=== PATIENT | female | born 1930 | race Caucasian/White ===

== ENCOUNTER 2017-01-19 09:56 | Outpatient (CLI) | payer MEDICARE, MEDICAID ==
[2017-01-19 11:11] LABS: Eosinophils 1 % (0-10); Hemoglobin 10.7 g/dL (12.0-16.0); Lymphocytes 30 % (21-51); MDiff Complete? YES; Mean Corpuscular HGB CONC 31.7 g/dL (32.0-36.0); Mean Corpuscular Hemoglobin 31.4 pg (27.0-31.0); Mean Corpuscular Volume 99.2 fl (81.0-99.0); Mean Platelet Volume 8.5 fL (7.4-10.4); Monocytes 6 % (0-10); Neutrophil 63 % (42-75); Platelet Count 159 thou/uL (130-400); RBC Distribution Width 12.4 % (11.5-14.5); White Blood Cell (WBC) Count 10.6 thou/uL (4.8-10.8)
== END 2017-01-19 09:57 | disposition home or self-care (01) ==
LOC: HPCALD 09:56
PROVIDERS: ATTEND Family Medicine
DX: R06.00 Dyspnea, unspecified (principal); E03.9 Hypothyroidism, unspecified
CPT/HCPCS: 36415; 82607; 82746; 83880; 84443; 85025

== ENCOUNTER 2017-03-09 16:49 | Outpatient (CLI) | payer MEDICARE, MEDICAID | END 2017-03-09 16:50 | disposition home or self-care (01) | LOC: HPCALD 16:49 | PROVIDERS: ATTEND Family Medicine | DX: E03.9 Hypothyroidism, unspecified (principal) | CPT/HCPCS: 36415; 84443 ==

== ENCOUNTER 2017-03-14 14:31 | Emergency (ER) | payer MEDICARE, MEDICAID ==
[2017-03-14 15:09] LABS: Hemoglobin 10.5 g/dL (12.0-16.0); Mean Corpuscular HGB CONC 30.8 g/dL (32.0-36.0); Mean Corpuscular Hemoglobin 30.6 pg (27.0-31.0); Mean Corpuscular Volume 99.2 fL (81.0-99.0); Red Blood Cell (RBC) Count 3.44 mill/uL (4.20-5.40); White Blood Cell (WBC) Count 7.8 thou/uL (4.8-10.8)
[2017-03-14 15:10] LABS: #Eosinphils 0.2 thou/uL (0.0-0.7); #Lymphocytes 1.9 thou/uL (1.20-3.40); #Monocytes 0.4 thou/uL (0.11-0.59); #Neutrophils 5.2 thou/uL (1.40-6.50); %Basophils 0.5 % (0.0-1.0); %Lymphocytes 24.4 % (21.0-51.0); %Monocytes 5.1 % (0.0-10.0); Mean Platelet Volume 10.3 fL (7.4-10.4); Platelet Count 186 thou/uL (130-400); RBC Distribution Width 12.1 % (11.5-14.5)
[2017-03-14 15:21] LABS: Carbon Dioxide 25 mmol/L (23-31); Chloride 107 mmol/L (98-107); Potassium 4.8 mmol/L (3.5-5.1); Sodium 143 mmol/L (136-145)
[2017-03-14 15:22] LABS: Albumin 3.7 g/dL (3.4-4.8); BUN (Urea Nitrogen) 14 mg/dL (9.8-20.1); Bilirubin, Total 0.3 mg/dL (0.2-1.2); Calc. Creatinine Clearance 0 mL/min (70-130); Calcium 8.7 mg/dL (7.8-10.44); Estimated GFR-MDRD 46; Globulin 3.1 g/dL (2.4-3.5); Glucose 115 mg/dL (83-110); Protein, Total 6.8 g/dL (5.8-8.1)
[2017-03-14 15:23] LABS: ALT (SGPT) 8 U/L (8-55); AST (SGOT) 17 U/L (5-34); Alkaline Phosphatase 59 U/L (40-150); Anion Gap 15 mmol/L (10-20); CK (CPK) 55 U/L (29-168)
== END 2017-03-14 16:32 | disposition home or self-care (01) ==
LOC: BURERS 14:31
DX: R00.1 Bradycardia, unspecified (principal); E03.9 Hypothyroidism, unspecified; M06.9 Rheumatoid arthritis, unspecified; J44.9 Chronic obstructive pulmonary disease, unspecified; F32.9 Major depressive disorder, single episode, unspecified; Z87.891 Personal history of nicotine dependence
CPT/HCPCS: 80053; 82550; 85025; 93005

== ENCOUNTER 2018-06-27 14:52 | Emergency (ER) | payer MEDICARE, MEDICAID ==
[2018-06-27 15:50] LABS: ALT (SGPT) 11 U/L (8-55); AST (SGOT) 20 U/L (5-34); Albumin 3.9 g/dL (3.4-4.8); Alkaline Phosphatase 62 U/L (40-150); Anion Gap 15 mmol/L (10-20); BUN (Urea Nitrogen) 12 mg/dL (9.8-20.1); Bilirubin, Total 0.3 mg/dL (0.2-1.2); Calc. Creatinine Clearance 0 mL/min (70-130); Carbon Dioxide 24 mmol/L (23-31); Chloride 102 mmol/L (98-107); Estimated GFR-MDRD 67; Globulin 3.3 g/dL (2.4-3.5); Glucose 102 mg/dL (83-110); Potassium 4.3 mmol/L (3.5-5.1); Protein, Total 7.2 g/dL (6.0-8.3); Sodium 137 mmol/L (136-145)
[2018-06-27 15:52] LABS: #Eosinphils 0.1 thou/uL (0.0-0.7); #Lymphocytes 1.6 thou/uL (1.20-3.40); #Monocytes 0.5 thou/uL (0.11-0.59); #Neutrophils 5.6 thou/uL (1.40-6.50); %Basophils 0.3 % (0.0-1.0); %Eosinophils 1.1 % (0.0-10.0); %Lymphocytes 20.8 % (21.0-51.0); %Monocytes 5.9 % (0.0-10.0); %Neutrophils 71.9 % (42.0-75.0); Hemoglobin 10.1 g/dL (12.0-16.0); Mean Corpuscular HGB CONC 34.7 g/dL (32.0-36.0); Mean Corpuscular Hemoglobin 29.4 pg (27.0-31.0); Mean Corpuscular Volume 84.8 fL (78.0-98.0); Mean Platelet Volume 7.3 fL (7.4-10.4); Platelet Count 203 thou/uL (130-400); RBC Distribution Width 11.3 % (11.5-14.5); Red Blood Cell (RBC) Count 3.45 mill/uL (4.20-5.40); White Blood Cell (WBC) Count 7.8 thou/uL (4.8-10.8)
[2018-06-27] MEDS ORDERED: Azithromycin 250 MG TAB ONE (16:23)
--- NOTE | 2018-06-27 19:24 | RAD ---
PORTABLE CHEST 06/27/18 An AP portable film at 1508 is compared with a 05/26/18 study. The lungs are hyperexpanded but no lobar consolidations were seen. There is definite streaking in the right base medially, however, it was present on the 05/25/18 study and has not changed markedly. No n ew infiltrates were seen elsewhere. There are no effusions. The heart size is normal. There are no s igns of vascular congestion. There may be a few faintly subcentimeter nodular changes in the right justus ng apex, but they are not much different than the prior studies. IMPRESSION: No acute finding. POS: HOME
== END 2018-06-27 19:47 | disposition home or self-care (01) ==
LOC: BURERS 14:52
DX: J44.1 Chronic obstructive pulmonary disease with (acute) exacerbation (principal); J06.9 Acute upper respiratory infection, unspecified; E03.9 Hypothyroidism, unspecified; F32.9 Major depressive disorder, single episode, unspecified; Z87.891 Personal history of nicotine dependence; Z79.899 Other long term (current) drug therapy
CPT/HCPCS: 36415; 71045; 80053; 83605; 85025; 87040; 93005; 94640; J7620

== ENCOUNTER 2018-07-09 15:11 | Inpatient (IN) | payer MEDICARE, MEDICAID ==
[2018-07-09] MEDS ORDERED: Ondansetron ODT 4 MG TAB PO PRN (16:58)
[2018-07-09] MEDS ORDERED: Acetaminophen 325 MG TAB PO PRN (16:58)
[2018-07-09] MEDS ORDERED: traMADol HCl 50 MG TAB PO PRN (16:58)
[2018-07-09] MEDS ORDERED: Mag-Al Plus 1200 MG/1200 MG/120 MG/30 ML UDCUP PO PRN (17:32)
[2018-07-09] MEDS ORDERED: INFLIXIMAB IV SCH (19:00)
[2018-07-09] MEDS: Doxycycline Hyclate 100 MG TAB PO SCH (20:43)
[2018-07-09] MEDS: Potassium Chloride 10 MEQ TAB PO SCH (20:44)
[2018-07-09] MEDS: Hydroxychloroquine Sulfate 200 MG TAB PO SCH (20:45)
[2018-07-09] MEDS: cycloSPORINE 0.05% Ophthalmic Droperette EA EYE SCH (20:45)
[2018-07-09] MEDS: SULFASALAZINE 500 MG PO SCH (20:48)
[2018-07-09] MEDS: Budesonide 0.5 MG/2 ML NEB NEB SCH (20:48)
[2018-07-09] MEDS ORDERED: [UNRECOGNIZED DRUG - OTHER] INH SCH (21:00)
[2018-07-10] MEDS: ALPRAZolam 0.5 MG TAB PO PRN (00:24)
[2018-07-10] MEDS: Loratadine 10 MG TAB PO PRN (00:40)
[2018-07-10] MEDS: Levothyroxine Sodium 100 MCG TAB PO SCH (05:27)
[2018-07-10] MEDS ORDERED: Spiriva 18 MCG CAP (Box of 5 Caps) INH SCH (09:00)
[2018-07-10] MEDS: Ferrous Sulfate 325 MG TAB PO SCH (10:30)
[2018-07-10] MEDS: Famotidine 20 MG TAB PO SCH (10:30)
[2018-07-10] MEDS: Budesonide 0.5 MG/2 ML NEB NEB SCH ×2 (10:30→20:44)
[2018-07-10] MEDS: Escitalopram Oxalate 20 mg Tablet PO SCH (10:30)
[2018-07-10] MEDS: predniSONE 10 MG TAB PO SCH (10:30)
[2018-07-10] MEDS: Atorvastatin Calcium 10 MG TAB PO SCH (10:30)
[2018-07-10] MEDS: Acetaminophen ER (8hr) 650 MG TAB PO SCH (10:30)
[2018-07-10] MEDS: Hydroxychloroquine Sulfate 200 MG TAB PO SCH ×2 (10:30→20:48)
[2018-07-10] MEDS: SULFASALAZINE 500 MG PO SCH ×3 (10:30→20:51)
[2018-07-10] MEDS: Fluticasone Propionate Nasal Spray 16 gm Bottle NASAL SCH (10:30)
[2018-07-10] MEDS: Furosemide 40 MG TAB PO SCH (10:30)
[2018-07-10] MEDS: Doxycycline Hyclate 100 MG TAB PO SCH ×2 (10:30→20:48)
[2018-07-10] MEDS: cycloSPORINE 0.05% Ophthalmic Droperette EA EYE SCH ×2 (10:30→20:48)
[2018-07-10] MEDS: Enoxaparin Sodium 40 MG/0.4 ML SYRINGE SC SCH (10:30)
[2018-07-10] MEDS: Saccharomyces boulardii 250 MG CAP PO SCH (10:30)
[2018-07-10] MEDS: Potassium Chloride 10 MEQ TAB PO SCH (20:48)
[2018-07-11] MEDS: Loratadine 10 MG TAB PO PRN (01:33)
[2018-07-11] MEDS: Levothyroxine Sodium 100 MCG TAB PO SCH (05:04)
[2018-07-11 05:22] LABS: Hemoglobin 8.7 g/dL (12.0-16.0); Platelet Count 320 thou/uL (130-400)
[2018-07-11] MEDS: Furosemide 40 MG TAB PO SCH (07:51)
[2018-07-11] MEDS: Ferrous Sulfate 325 MG TAB PO SCH (07:51)
[2018-07-11] MEDS: Escitalopram Oxalate 20 mg Tablet PO SCH (08:51)
[2018-07-11] MEDS: Atorvastatin Calcium 10 MG TAB PO SCH (08:51)
[2018-07-11] MEDS: Hydroxychloroquine Sulfate 200 MG TAB PO SCH ×2 (08:51→17:09)
[2018-07-11] MEDS: predniSONE 10 MG TAB PO SCH (08:51)
[2018-07-11] MEDS: Famotidine 20 MG TAB PO SCH (08:53)
[2018-07-11] MEDS: Budesonide 0.5 MG/2 ML NEB NEB SCH ×2 (08:53→21:17)
[2018-07-11] MEDS: Doxycycline Hyclate 100 MG TAB PO SCH ×2 (08:53→21:13)
[2018-07-11] MEDS: Saccharomyces boulardii 250 MG CAP PO SCH (08:53)
[2018-07-11] MEDS: Enoxaparin Sodium 40 MG/0.4 ML SYRINGE SC SCH (09:00)
[2018-07-11] MEDS: Fluticasone Propionate Nasal Spray 16 gm Bottle NASAL SCH (09:01)
[2018-07-11] MEDS: TIOTROPIUM 18 MCG INH SCH (09:04)
[2018-07-11] MEDS: cycloSPORINE 0.05% Ophthalmic Droperette EA EYE SCH (09:10)
[2018-07-11] MEDS: Acetaminophen ER (8hr) 650 MG TAB PO SCH (10:56)
[2018-07-11] MEDS: SULFASALAZINE 500 MG PO SCH ×2 (10:57→21:24)
[2018-07-11] MEDS: traMADol HCl 50 MG TAB PO PRN (15:23)
[2018-07-11] MEDS: Potassium Chloride 10 MEQ TAB PO SCH (21:13)
[2018-07-11] MEDS: CYCLOSPORINE EA EYE SCH (21:19)
[2018-07-12] MEDS: Levothyroxine Sodium 100 MCG TAB PO SCH (05:33)
[2018-07-12] MEDS: Saccharomyces boulardii 250 MG CAP PO SCH (08:58)
[2018-07-12] MEDS: Furosemide 40 MG TAB PO SCH (08:58)
[2018-07-12] MEDS: Escitalopram Oxalate 20 mg Tablet PO SCH (08:59)
[2018-07-12] MEDS: Doxycycline Hyclate 100 MG TAB PO SCH ×2 (08:59→20:15)
[2018-07-12] MEDS: Ferrous Sulfate 325 MG TAB PO SCH (08:59)
[2018-07-12] MEDS: predniSONE 10 MG TAB PO SCH (08:59)
[2018-07-12] MEDS: Atorvastatin Calcium 10 MG TAB PO SCH (09:00)
[2018-07-12] MEDS: Enoxaparin Sodium 40 MG/0.4 ML SYRINGE SC SCH (09:00)
[2018-07-12] MEDS: Acetaminophen ER (8hr) 650 MG TAB PO SCH (09:01)
[2018-07-12] MEDS: Fluticasone Propionate Nasal Spray 16 gm Bottle NASAL SCH (09:02)
[2018-07-12] MEDS: Hydroxychloroquine Sulfate 200 MG TAB PO SCH ×2 (09:03→17:30)
[2018-07-12] MEDS: Famotidine 20 MG TAB PO SCH (09:03)
[2018-07-12] MEDS: Budesonide 0.5 MG/2 ML NEB NEB SCH ×2 (09:10→20:12)
[2018-07-12] MEDS: CYCLOSPORINE EA EYE SCH ×2 (09:11→20:22)
[2018-07-12] MEDS: TIOTROPIUM 18 MCG INH SCH (09:12)
[2018-07-12] MEDS: SULFASALAZINE 500 MG PO SCH ×2 (09:36→20:27)
[2018-07-12] MEDS: Potassium Chloride 10 MEQ TAB PO SCH (20:15)
[2018-07-12] MEDS: ALPRAZolam 0.5 MG TAB PO PRN (23:58)
[2018-07-12] MEDS: traMADol HCl 50 MG TAB PO PRN (23:59)
[2018-07-13 05:22] LABS: Hemoglobin 9.4 g/dL (12.0-16.0); Platelet Count 327 thou/uL (130-400)
[2018-07-13] MEDS: Levothyroxine Sodium 100 MCG TAB PO SCH (05:25)
[2018-07-13] MEDS: Enoxaparin Sodium 40 MG/0.4 ML SYRINGE SC SCH (08:27)
[2018-07-13] MEDS: Saccharomyces boulardii 250 MG CAP PO SCH (08:28)
[2018-07-13] MEDS: Doxycycline Hyclate 100 MG TAB PO SCH ×2 (08:28→20:26)
[2018-07-13] MEDS: Furosemide 40 MG TAB PO SCH (08:28)
[2018-07-13] MEDS: Famotidine 20 MG TAB PO SCH (08:28)
[2018-07-13] MEDS: Hydroxychloroquine Sulfate 200 MG TAB PO SCH ×2 (08:28→17:23)
[2018-07-13] MEDS: predniSONE 10 MG TAB PO SCH (08:29)
[2018-07-13] MEDS: Escitalopram Oxalate 20 mg Tablet PO SCH (08:29)
[2018-07-13] MEDS: Atorvastatin Calcium 10 MG TAB PO SCH (08:29)
[2018-07-13] MEDS: Ferrous Sulfate 325 MG TAB PO SCH (08:30)
[2018-07-13] MEDS: TIOTROPIUM 18 MCG INH SCH (08:31)
[2018-07-13] MEDS: CYCLOSPORINE EA EYE SCH ×2 (08:31→20:25)
[2018-07-13] MEDS: Acetaminophen ER (8hr) 650 MG TAB PO SCH (08:32)
[2018-07-13] MEDS: SULFASALAZINE 500 MG PO SCH ×2 (08:33→20:27)
[2018-07-13] MEDS: Fluticasone Propionate Nasal Spray 16 gm Bottle NASAL SCH (08:36)
[2018-07-13] MEDS: Budesonide 0.5 MG/2 ML NEB NEB SCH ×2 (08:39→20:28)
[2018-07-13] MEDS: traMADol HCl 50 MG TAB PO PRN ×2 (14:28→20:26)
[2018-07-13] MEDS: Potassium Chloride 10 MEQ TAB PO SCH (20:26)
[2018-07-14] MEDS: Levothyroxine Sodium 100 MCG TAB PO SCH (05:19)
[2018-07-14] MEDS: Hydroxychloroquine Sulfate 200 MG TAB PO SCH ×2 (07:48→18:11)
[2018-07-14] MEDS: Ferrous Sulfate 325 MG TAB PO SCH (07:48)
[2018-07-14] MEDS: Furosemide 40 MG TAB PO SCH (07:49)
[2018-07-14] MEDS: predniSONE 10 MG TAB PO SCH (09:00)
[2018-07-14] MEDS: Escitalopram Oxalate 20 mg Tablet PO SCH (09:00)
[2018-07-14] MEDS: Saccharomyces boulardii 250 MG CAP PO SCH (09:00)
[2018-07-14] MEDS: Atorvastatin Calcium 10 MG TAB PO SCH (09:00)
[2018-07-14] MEDS: Famotidine 20 MG TAB PO SCH (09:00)
[2018-07-14] MEDS: Doxycycline Hyclate 100 MG TAB PO SCH ×2 (09:01→20:51)
[2018-07-14] MEDS: Enoxaparin Sodium 40 MG/0.4 ML SYRINGE SC SCH (09:03)
[2018-07-14] MEDS: CYCLOSPORINE EA EYE SCH ×2 (09:03→20:50)
[2018-07-14] MEDS: Budesonide 0.5 MG/2 ML NEB NEB SCH ×2 (09:04→20:47)
[2018-07-14] MEDS: TIOTROPIUM 18 MCG INH SCH (09:07)
[2018-07-14] MEDS: SULFASALAZINE 500 MG PO SCH ×2 (09:08→20:52)
[2018-07-14] MEDS: Acetaminophen ER (8hr) 650 MG TAB PO SCH (09:09)
[2018-07-14] MEDS: Fluticasone Propionate Nasal Spray 16 gm Bottle NASAL SCH (09:11)
[2018-07-14 14:28] LABS: Anion Gap 18 mmol/L (10-20); BUN (Urea Nitrogen) 18 mg/dL (9.8-20.1); Calc. Creatinine Clearance 46 mL/min (70-130); Calcium 8.9 mg/dL (7.8-10.44); Carbon Dioxide 27 mmol/L (23-31); Chloride 91 mmol/L (98-107); Estimated GFR-MDRD 63; Glucose 98 mg/dL (83-110); Potassium 3.9 mmol/L (3.5-5.1); Sodium 132 mmol/L (136-145)
[2018-07-14 14:29] LABS: #Basophils 0.1 thou/uL (0.0-0.2); #Eosinphils 0.1 thou/uL (0.0-0.7); #Lymphocytes 1.1 thou/uL (1.20-3.40); #Monocytes 0.5 thou/uL (0.11-0.59); #Neutrophils 10.1 thou/uL (1.40-6.50); %Basophils 0.4 % (0.0-1.0); %Eosinophils 0.5 % (0.0-10.0); %Lymphocytes 9.7 % (21.0-51.0); %Monocytes 3.9 % (0.0-10.0); %Neutrophils 85.5 % (42.0-75.0); Hemoglobin 10.1 g/dL (12.0-16.0); Mean Corpuscular HGB CONC 31.7 g/dL (32.0-36.0); Mean Corpuscular Hemoglobin 29.8 pg (27.0-31.0); Mean Corpuscular Volume 93.9 fL (78.0-98.0); Mean Platelet Volume 9.7 fL (7.4-10.4); Platelet Count 307 thou/uL (130-400); RBC Distribution Width 12.7 % (11.5-14.5); Red Blood Cell (RBC) Count 3.39 mill/uL (4.20-5.40); White Blood Cell (WBC) Count 11.8 thou/uL (4.8-10.8)
[2018-07-14] MEDS: Milk Of Magnesia 30 ML UDCUP PO PRN (14:36)
[2018-07-14] MEDS: traMADol HCl 50 MG TAB PO PRN ×2 (14:36→20:51)
--- NOTE | 2018-07-14 15:04 | RAD ---
CHEST 2 VIEWS: Date: 07/14/18 Comparison is made with the 07/07/18 portable study done at [facility]. Congestive changes have improved with less engorgement of vessels. While there is some pleural fluid present, it has decreased, particularly on the left. There are still some infiltrative changes in eac h lung base. COPD is noted as usual, as well as degenerative changes of the spine. IMPRESSION: Overall improvement since 07/07/18. Congestive changes have largely resolved. Some residual basilar s treaking. POS: HOME
[2018-07-14] MEDS: Potassium Chloride 10 MEQ TAB PO SCH (20:51)
[2018-07-15] MEDS: Levothyroxine Sodium 100 MCG TAB PO SCH (05:39)
[2018-07-15 05:41] LABS: Hemoglobin 10.1 g/dL (12.0-16.0); Platelet Count 305 thou/uL (130-400)
[2018-07-15] MEDS: Ferrous Sulfate 325 MG TAB PO SCH (08:34)
[2018-07-15] MEDS: Hydroxychloroquine Sulfate 200 MG TAB PO SCH ×2 (08:34→17:45)
[2018-07-15] MEDS: Atorvastatin Calcium 10 MG TAB PO SCH (08:34)
[2018-07-15] MEDS: Saccharomyces boulardii 250 MG CAP PO SCH (08:34)
[2018-07-15] MEDS: Doxycycline Hyclate 100 MG TAB PO SCH ×2 (08:34→20:27)
[2018-07-15] MEDS: Escitalopram Oxalate 20 mg Tablet PO SCH (08:35)
[2018-07-15] MEDS: predniSONE 10 MG TAB PO SCH (08:35)
[2018-07-15] MEDS: Furosemide 40 MG TAB PO SCH (08:38)
[2018-07-15] MEDS: Famotidine 20 MG TAB PO SCH (08:38)
[2018-07-15] MEDS: Enoxaparin Sodium 40 MG/0.4 ML SYRINGE SC SCH (08:38)
[2018-07-15] MEDS: Acetaminophen ER (8hr) 650 MG TAB PO SCH (08:39)
[2018-07-15] MEDS: SULFASALAZINE 500 MG PO SCH ×2 (08:39→20:24)
[2018-07-15] MEDS: CYCLOSPORINE EA EYE SCH ×2 (08:40→20:25)
[2018-07-15] MEDS: Fluticasone Propionate Nasal Spray 16 gm Bottle NASAL SCH (08:40)
[2018-07-15] MEDS: TIOTROPIUM 18 MCG INH SCH (08:43)
[2018-07-15] MEDS: Budesonide 0.5 MG/2 ML NEB NEB SCH ×2 (08:45→20:27)
[2018-07-15] MEDS: Milk Of Magnesia 30 ML UDCUP PO PRN (17:54)
[2018-07-15 18:33] VITALS: TEMP 98.3
[2018-07-15] MEDS: Potassium Chloride 10 MEQ TAB PO SCH (20:26)
[2018-07-15] MEDS: traMADol HCl 50 MG TAB PO PRN (20:26)
[2018-07-16 03:24] VITALS: BMI 20.1
[2018-07-16 05:23] LABS: #Basophils 0.1 thou/uL (0.0-0.2); #Eosinphils 0.1 thou/uL (0.0-0.7); #Lymphocytes 1.9 thou/uL (1.20-3.40); #Monocytes 0.9 thou/uL (0.11-0.59); #Neutrophils 6.9 thou/uL (1.40-6.50); %Basophils 0.6 % (0.0-1.0); %Eosinophils 0.6 % (0.0-10.0); %Lymphocytes 19.5 % (21.0-51.0); %Monocytes 9.4 % (0.0-10.0); %Neutrophils 69.9 % (42.0-75.0); Hemoglobin 9.9 g/dL (12.0-16.0); Mean Corpuscular Hemoglobin 30.2 pg (27.0-31.0); Mean Corpuscular Volume 94.4 fL (78.0-98.0); Platelet Count 254 thou/uL (130-400); RBC Distribution Width 13.4 % (11.5-14.5); Red Blood Cell (RBC) Count 3.26 mill/uL (4.20-5.40); White Blood Cell (WBC) Count 9.9 thou/uL (4.8-10.8)
[2018-07-16 05:38] LABS: Anion Gap 15 mmol/L (10-20); BUN (Urea Nitrogen) 21 mg/dL (9.8-20.1); Calc. Creatinine Clearance 41 mL/min (70-130); Calcium 8.4 mg/dL (7.8-10.44); Carbon Dioxide 29 mmol/L (23-31); Chloride 94 mmol/L (98-107); Estimated GFR-MDRD 60; Glucose 74 mg/dL (83-110); Potassium 3.9 mmol/L (3.5-5.1); Sodium 134 mmol/L (136-145)
[2018-07-16] MEDS: Levothyroxine Sodium 100 MCG TAB PO SCH (05:43)
[2018-07-16 05:57] VITALS: BP 99/51
--- NOTE | 2018-07-16 07:16 | RAD ---
CHEST 2 VIEWS: Date: 07/16/18 Comparison made with the 07/14/18 study. FINDINGS: There is slight improvement in the basilar infiltrates in the interval, though there is still residua l present. Pleural fluid is also decreasing. No new infiltrates were present. Hyperinflated lungs are seen as usual. The heart size is normal and there are no congestive changes. IMPRESSION: COPD with slight improvement in basilar infiltrates since 07/14/18. POS: HOME
[2018-07-16] MEDS: Furosemide 40 MG TAB PO SCH (08:23)
[2018-07-16] MEDS: Escitalopram Oxalate 20 mg Tablet PO SCH (08:23)
[2018-07-16] MEDS: Hydroxychloroquine Sulfate 200 MG TAB PO SCH (08:24)
[2018-07-16] MEDS: Famotidine 20 MG TAB PO SCH (08:24)
[2018-07-16] MEDS: Ferrous Sulfate 325 MG TAB PO SCH (08:24)
[2018-07-16] MEDS: Loratadine 10 MG TAB PO PRN (08:24)
[2018-07-16] MEDS: Atorvastatin Calcium 10 MG TAB PO SCH (08:24)
[2018-07-16] MEDS: predniSONE 10 MG TAB PO SCH (08:24)
[2018-07-16] MEDS: Acetaminophen ER (8hr) 650 MG TAB PO SCH (08:25)
[2018-07-16] MEDS: Doxycycline Hyclate 100 MG TAB PO SCH (08:25)
[2018-07-16] MEDS: Enoxaparin Sodium 40 MG/0.4 ML SYRINGE SC SCH (08:26)
[2018-07-16] MEDS: SULFASALAZINE 500 MG PO SCH (08:28)
[2018-07-16] MEDS: Fluticasone Propionate Nasal Spray 16 gm Bottle NASAL SCH (08:29)
[2018-07-16] MEDS: TIOTROPIUM 18 MCG INH SCH (08:29)
[2018-07-16] MEDS: CYCLOSPORINE EA EYE SCH (08:31)
[2018-07-16] MEDS: Budesonide 0.5 MG/2 ML NEB NEB SCH (08:38)
[2018-08-06] MEDS ORDERED: Cyanocobalamin 1000 MCG/ML VIAL SC SCH (09:00)
== END 2018-07-16 13:18 | disposition home health service (06) | DRG 194 ==
LOC: BURMED 16:15
PROVIDERS: ADMIT Family Medicine; ATTEND Family Medicine
DX: J18.9 Pneumonia, unspecified organism (principal); J96.11 Chronic respiratory failure with hypoxia; M21.941 Unspecified acquired deformity of hand, right hand; R60.0 Localized edema; J44.9 Chronic obstructive pulmonary disease, unspecified; M06.9 Rheumatoid arthritis, unspecified; F41.9 Anxiety disorder, unspecified; F32.9 Major depressive disorder, single episode, unspecified; E03.9 Hypothyroidism, unspecified; E78.5 Hyperlipidemia, unspecified; Z66 Do not resuscitate; Z99.81 Dependence on supplemental oxygen; Z79.52 Long term (current) use of systemic steroids; I10 Essential (primary) hypertension; D64.9 Anemia, unspecified; I73.9 Peripheral vascular disease, unspecified; H90.5 Unspecified sensorineural hearing loss; Z87.891 Personal history of nicotine dependence; R13.10 Dysphagia, unspecified; K22.8 Other specified diseases of esophagus
CPT/HCPCS: 36415; 71046; 80048; 82565; 85014; 85018; 85025; 85049; G8978-GP-CK; G8979-GP-CI; G8987-GO-CL; G8988-GO-CI; G8996-GN-CJ; G8997-GN-CJ; J1650; J7512; J7620; J7626; Q0162

== ENCOUNTER 2018-12-29 22:48 | Emergency (ER) | payer MEDICARE, MEDICAID | END 2018-12-29 23:21 | disposition home or self-care (01) | LOC: BURERS 22:48 | DX: S81.811A Laceration without foreign body, right lower leg, initial encounter (principal); E03.9 Hypothyroidism, unspecified; J44.9 Chronic obstructive pulmonary disease, unspecified; F32.9 Major depressive disorder, single episode, unspecified; Z87.891 Personal history of nicotine dependence; W22.8XXA Striking against or struck by other objects, initial encounter | CPT/HCPCS: 12001 ==

== ENCOUNTER 2019-06-02 06:00 | Emergency (ER) | payer MEDICARE, MEDICAID ==
[2019-06-02 06:42] LABS: #Basophils 0.1 thou/uL (0.0-0.2); #Eosinphils 0.3 thou/uL (0.0-0.7); #Lymphocytes 2.6 thou/uL (1.20-3.40); #Monocytes 0.9 thou/uL (0.11-0.59); #Neutrophils 7.1 thou/uL (1.40-6.50); %Basophils 0.6 % (0.0-1.0); %Eosinophils 2.3 % (0.0-10.0); %Lymphocytes 23.9 % (21.0-51.0); %Neutrophils 65.3 % (42.0-75.0); Hemoglobin 10.2 g/dL (12.0-16.0); Mean Corpuscular Hemoglobin 30.1 pg (27.0-31.0); Mean Corpuscular Volume 97.3 fL (78.0-98.0); Mean Platelet Volume 8.2 fL (7.4-10.4); Platelet Count 161 thou/uL (130-400); RBC Distribution Width 12.3 % (11.5-14.5); Red Blood Cell (RBC) Count 3.38 mill/uL (4.20-5.40); White Blood Cell (WBC) Count 10.9 thou/uL (4.8-10.8)
[2019-06-02 06:55] LABS: Bilirubin Negative (Negative); Blood, Urine Trace (Negative); Clarity Clear (Clear); Glucose, Urine (Dipstick) Negative (Negative); Leukocyte Trace (Negative); Nitrite Negative (Negative); Protein, Urine (Dipstick) Negative (Neg-Trace); Urobilinogen 0.2 mg/dL (Less than 2)
[2019-06-02 06:56] LABS: ALT (SGPT) 7 U/L (8-55); AST (SGOT) 18 U/L (5-34); Albumin 3.7 g/dL (3.4-4.8); Alkaline Phosphatase 49 U/L (40-150); Anion Gap 15 mmol/L (10-20); BUN (Urea Nitrogen) 11 mg/dL (9.8-20.1); Bilirubin, Total 0.3 mg/dL (0.2-1.2); Calc. Creatinine Clearance 0 mL/min (70-130); Calcium 8.6 mg/dL (7.8-10.44); Carbon Dioxide 27 mmol/L (23-31); Chloride 100 mmol/L (98-107); Estimated GFR-MDRD 56; Globulin 2.7 g/dL (2.4-3.5); Glucose 103 mg/dL (83-110); Potassium 3.5 mmol/L (3.5-5.1); Protein, Total 6.4 g/dL (6.0-8.3); Sodium 138 mmol/L (136-145)
[2019-06-02 06:59] LABS: Bacteria/HPF Rare-Few HPF (None Seen); RBC/HPF 0-3 HPF (0-3); Squamous Epithelial 0-3 HPF (0-3); WBC/HPF 0-3 HPF (0-3)
[2019-06-02] MEDS ORDERED: Ondansetron PF 4 MG/2 ML Vial ONE (07:11)
[2019-06-02] MEDS ORDERED: diphenhydrAMINE 50 MG/ML VIAL ONE (07:11)
[2019-06-02] MEDS ORDERED: predniSONE 20 MG TAB ONE (08:35)
[2019-06-02] MEDS ORDERED: traMADol HCl 50 MG TAB ONE (08:35)
[2019-06-02] MEDS ORDERED: Iopamidol 370 76% 125 ML VIAL FS ONE (11:07)
--- NOTE | 2019-06-03 07:44 | CT ---
PRELIMINARY REPORT/[facility]/EMERGENCY AFTER HOURS PROCEDURE: Addendum created by Bennett Pleitez MD on 06/02/2019 8:02 AM Central Time ([place] & [place]) Findings were disc ussed with RAQUEL MCMULLEN at 06/02/2019 8:01 AM CDT. Notes that study is aortic dissection protocol and d oes not include the lower extremities. Initial Report created on 06/02/2019 7:59 AM Central Time ([place] & [place]) EXAM: CT Angiography Chest With Contrast EXAM DATE/TIME: 06/02/2019 6:52 AM CLINICAL HISTORY: 88 years old, female; Pain and condition or disease; Heart disease and other: Shoulder pain; Other: P ain shoulder; Abdominal pain; Acute TECHNIQUE: Imaging protocol: Axial computed tomographic angiography images of the chest with intravenous contras t using CT angiography protocol. Coronal and sagittal reformatted images were created and reviewed. COMPARISON: No relevant prior studies available. FINDINGS: Pulmonary arteries: Normal. No pulmonary emboli. Aorta: The aorta demonstrates mild atherosclerotic calcification. There is no evidence of aortic diss ection, leak, rupture, or other complications. Lungs: Moderate centrilobular emphysematous changes are present. There is a suspicious spiculated nod ule within the right upper lobe measuring 10 mm. Additional 4 mm right upper lobe pulmonary nodule is also noted. There is subpleural atelectasis of the dependent portions of the lungs. There is discoid atelectasis left lung base. Pleural space: Unremarkable. No pneumothorax. No pleural effusion. Heart: Unremarkable. No cardiomegaly. No pericardial effusion. Lymph nodes: Unremarkable. No enlarged lymph nodes. Bones/joints: Unremarkable. No acute fracture. Soft tissues: Unremarkable. IMPRESSION: 1. There is no evidence of aortic dissection, leak, rupture, or other complications. 2. Moderate centrilobular emphysematous changes are present. 3. There is a suspicious spiculated nodule within the right upper lobe measuring 10 mm. PET/CT or tis roseanna sampling is advised as clinically warranted. Additional 4 mm nodule as above. EXAM: CT Bilateral Angiogram of the Abdominal Aorta and Bilateral Lower Extremities (Run-off) With IV Contr ast EXAM DATE/TIME: 06/02/2019 6:52 AM CLINICAL HISTORY: 88 years old, female; Pain and condition or disease; Heart disease and other: Shoulder pain; Other: P ain shoulder; Abdominal pain; Acute TECHNIQUE: Imaging protocol: Bilateral CT angiogram of the abdominal aorta, pelvis and bilateral lower extremiti es with IV iodinated contrast. Coronal and sagittal reformatted images were created and reviewed. 3D rendering: MIP reconstructed images were created and reviewed. Radiation optimization: All CT scans at this facility use at least one of these dose optimization fidencio hniques: automated exposure control; mA and/or kV adjustment per patient size (includes targeted exam s where dose is matched to clinical indication); or iterative reconstruction. Contrast material: ISO 370;Contrast volume: 125 ml;Contrast route: IV; COMPARISON: No relevant prior studies available. FINDINGS: Aorta: The vasculature demonstrates diffuse moderate atherosclerotic calcification. There is infraren al abdominal aortic aneurysm measuring up to 3 cm. 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 There is atherosclerotic calcification at the origin of the SMA with mild stenosis; otherwise patent. Renal arteries: No occlusion or significant stenosis. Right iliac arteries: There is mild atherosclerotic calcification of the right external iliac artery. There is mild atherosclerotic calcification of the right internal iliac artery. There is moderate at herosclerotic calcification of the right common iliac artery. Right femoral: Mild atherosclerotic ossification of the proximal right common femoral artery is noted . Left iliac arteries: There is mild atherosclerotic calcification of the left external iliac artery. T here is mild atherosclerotic calcification of the left internal iliac artery. There is moderate ather osclerotic ossification of the left common iliac artery. There is probably mild stenosis of the distal left comm on iliac artery on the basis of atherosclerotic change. Left femoral: There is moderate atherosclerotic calcification of the proximal left common femoral art josesito. Mediastinum: A small hiatal hernia is present. Liver: No mass. Gallbladder and bile ducts: There has been a cholecystectomy. There is a mild, expected degree of intrahepatic and common bile duct dilation. Pancreas: Unremarkable. No mass. No ductal dilation. Spleen: The spleen is normal. Adrenals: The adrenal glands are normal. Kidneys and ureters: There is a simple cyst in the right kidney. There is no evidence of hydronephros is. There are multiple left renal hypodensities that cannot be further characterized on the current e xamination. Stomach and bowel: The stomach is normal. Appendix: No evidence of appendicitis. Bladder: Unremarkable. No mass. Reproductive: Unremarkable as visualized. Intraperitoneal space: Unremarkable. No free air. No significant fluid collection. Lymph nodes: No lymphadenopathy. Bones/joints: No acute fracture. No dislocation. Soft tissues: Unremarkable. IMPRESSION: Mild aortobiiliac atherosclerotic disease as above. Small 3 cm infrarenal abdominal aortic aneurysm. Note that the bilateral lower extremities were not included in the provided images. If subsequently s ubmitted, an addendum may be issued upon review. Thank you for allowing us to participate in the care of your patient. Dictated and Authenticated by: Bennett Pleitez MD 06/02/2019 7:59 AM Central Time ([place] & [place]) FINAL REPORT CT AORTIC DISSECTION: 06/02/2019 COMPARISON: Prior study dated 08/21/2018, done at [facility]. TECHNIQUE: A spiral CT of the chest and abdomen was done after a bolus of IV contrast, with MIP reconstructions to display the aorta. FINDINGS: CHEST: There is excellent opacification of the aorta with no evidence of aortic dissection at any po int. There is an infrarenal abdominal aortic aneurysm that measures a maximum of 3.2 cm in AP diamet er. This was present on older scans and has not changed substantially. In the chest, both coronary arteries fill. It is difficult to comment on calcifications here. There is probable some narrowing and arteriosclerosis at the origin of the celiac and SMA. Both renal arteries fill, but there is pro bably a small amount of stenosis at the origin of the left renal artery. The NETTA fills. Both iliac arteries fill, though there is considerable arteriosclerotic calcification throughout them. The CT thorax portion of the study shows diffuse fibroemphysematous changes with some basilar atelect asis and scarring, worse in the left lower lobe, posteriorly. Attention is drawn to the right upper lobe, posteriorly, on scan 29, where there is a 1.5 cm spiculated mass. This was present and comment ed on in the 2018 CT, but it is more solid today than it was before. Thus, the suspicion of neoplasm raises even higher. In addition, there is a small, 4 mm nodule in the base of the right upper lobe, peripherally. It is smoother. It can barely be seen before, but was probably about the same size. There are no effusions. ABDOMEN: CT angio of the abdomen shows a small hiatal hernia. The liver, spleen, pancreas, and adre nal glands are unremarkable. There has been a prior cholecystectomy. An exophytic cyst is seen on t he right kidney. There are a few subcentimeter hypodensities in the left kidney that are most likely cysts but are too small to characterize. The bowel shows no distention to suggest obstruction. No wall thickening is seen. No free air or free fluid is present. Not all the pelvis was scanned, but the visible portions show no mass, inflammatory change, or fluid. The patient's spine shows no gross fracture. There is a very minor amount of anterior wedging of T7. Extensive degenerative changes a re present throughout. IMPRESSION: 1. No evidence of aortic dissection. 2. A 3 cm infrarenal abdominal aortic aneurysm, unchanged from 2018. 3. Various arteriosclerotic changes, described above. 4. A 1.5 cm spiculated nodule in the right upper lobe, present on the prior scan, but it has definit zoran become more solid in the interval. Neoplasm seems probable. A more peripheral 4 mm smooth nodul e has changed little. Findings in agreement with preliminary reading by Moiz. POS: HOME
== END 2019-06-02 08:45 | disposition home or self-care (01) ==
LOC: BURERS 06:00
DX: M25.511 Pain in right shoulder (principal); E03.9 Hypothyroidism, unspecified; M06.9 Rheumatoid arthritis, unspecified; J44.9 Chronic obstructive pulmonary disease, unspecified; F32.9 Major depressive disorder, single episode, unspecified; Z87.891 Personal history of nicotine dependence; Z79.899 Other long term (current) drug therapy; Z79.82 Long term (current) use of aspirin; Z79.52 Long term (current) use of systemic steroids
CPT/HCPCS: 36415; 51701; 71275; 80053; 81003; 81015; 83605; 84484; 85025; 85379; 87040; 93005; 94760; J1200; J2270; J2405; J7512; Q9967

== ENCOUNTER 2019-08-23 10:36 | Emergency (ER) | payer MEDICARE, MEDICAID ==
[2019-08-23] MEDS ORDERED: HYDROcodone/Acetaminophen 5/325 mg Tablet ONE (11:00)
[2019-08-23] MEDS ORDERED: Ibuprofen 200 MG TAB ONE (11:00)
[2019-08-23] MEDS ORDERED: Lidocaine 1% PF 5 ML VIAL ONE (11:43)
[2019-08-23] MEDS ORDERED: Bupivacaine 0.5% 10 ML VIAL ONE (11:43)
[2019-08-23] MEDS ORDERED: Fentanyl 100 MCG/2 ML VIAL ONE (12:07)
--- NOTE | 2019-08-23 17:39 | CT ---
CT OF THE BRAIN WITHOUT CONTRAST: 08/23/19 Diffuse atrophy is present. The ventricular size is normal given age and atrophy. No intracranial ble eding or extra-axial hematoma was seen. There is no sign of acute stroke, mass or edema. The skull ap pears intact. The visible paranasal sinuses and mastoid air cells are clear. There is slight irregula rity of the nasal bones suggesting there may have been an old injury here, though it does not appear acute. IMPRESSION: No acute intracranial findings. POS: HOME
--- NOTE | 2019-08-23 17:40 | RAD ---
LEFT SHOULDER THREE VIEWS 08/23/19 No fracture, dislocation, or AC joint widening was seen. There appear to be some old rib fractures on the left, but no acute fractures were appreciated. IMPRESSION: No acute finding. POS: HOME
--- NOTE | 2019-08-23 17:42 | RAD ---
LEFT WRIST THREE VIEWS: 08/23/19 A fracture of the distal radius and ulna is seen. The radial fracture has a transverse component but also some angulated components yielding some slight comminution. There is only slight dorsal angulati on of the distal large fragment. The comminuted fracture of the distal ulna is present involving not just the styloid process, but sev eral places leading up to the ulnar styloid. There is only mild displacement of the fragments. While it is difficult to see the carpal bones well, particularly with her osteoporosis, no gross carpal fr acture or dislocation was seen. IMPRESSION: Fractures of the distal radius and ulna. POS: HOME
--- NOTE | 2019-08-23 17:43 | RAD ---
LEFT WRIST TWO VIEWS (POST REDUCTION): 08/23/19 The splint has been applied. The ulnar fracture is slightly better position and the radial fracture h as been repositioned to some extent, there is still some dorsal displacement of the distal fragment. IMPRESSION: Some improvement in alignment of the ulnar and radial fractures. POS: HOME
== END 2019-08-23 13:23 | disposition home or self-care (01) ==
LOC: BURERS 10:36
DX: S52.532A Colles' fracture of left radius, initial encounter for closed fracture (principal); S51.812A Laceration without foreign body of left forearm, initial encounter; S00.83XA Contusion of other part of head, initial encounter; Z79.899 Other long term (current) drug therapy; Z79.52 Long term (current) use of systemic steroids; W18.30XA Fall on same level, unspecified, initial encounter
CPT/HCPCS: 12001; 25605; 70450; J2001; J3010; J3490

== ENCOUNTER 2019-08-26 07:12 | Emergency (ER) | payer MEDICARE, MEDICAID ==
[2019-08-26] MEDS ORDERED: HYDROcodone/Acetaminophen 5/325 mg Tablet ONE (08:00)
== END 2019-08-26 08:22 | disposition home or self-care (01) ==
LOC: BURERS 07:12
DX: Z46.4 Encounter for fitting and adjustment of orthodontic device (principal); E03.9 Hypothyroidism, unspecified; J43.9 Emphysema, unspecified; F32.9 Major depressive disorder, single episode, unspecified; Z87.891 Personal history of nicotine dependence; Z79.899 Other long term (current) drug therapy
CPT/HCPCS: 29125

== ENCOUNTER 2020-05-22 15:22 | Outpatient (CLI) | payer MEDICARE, MEDICAID ==
--- NOTE | 2020-05-22 19:15 | RAD ---
LEFT ANKLE THREE VIEWS: 05/22/20 Comparison is made with the 09/11/12 study. There is abundant soft tissue swelling. Previously, the a nkle joint space was normal and the articular surfaces were normal as well. On today's exam, there is some loss of the joint space but in particular there is gross irregularity of the dome of the talus at the tibiotalar joint. This could be due to prior trauma and osteochondral injury or interval davion re degenerative change. A calcaneal spur is noted. I do not appreciate an acute fracture. IMPRESSION: 1. Soft tissue swelling. 2. Very irregular talar dome. See above. POS: HOME
--- NOTE | 2020-05-22 19:16 | RAD ---
LEFT FOOT THREE VIEWS: 05/22/20 No acute fracture was seen. There may have been an old injury to the base of the fifth metatarsal. Th ere is no periosteal reaction or area of bony destruction in the area of the foot. IMPRESSION: No acute finding. POS: HOME
== END 2020-05-22 15:23 | disposition home or self-care (01) ==
LOC: BURRAD 15:22
PROVIDERS: ATTEND Family Medicine
DX: M25.672 Stiffness of left ankle, not elsewhere classified (principal); M25.572 Pain in left ankle and joints of left foot; M79.89 Other specified soft tissue disorders

== ENCOUNTER 2021-01-23 14:46 | Emergency (ER) | payer MEDICARE, MEDICAID ==
[2021-01-23 15:16] LABS: #Lymphocytes 0.9 thou/uL (1.20-3.40); #Monocytes 0.3 thou/uL (0.11-0.59); #Neutrophils 5.9 thou/uL (1.40-6.50); %Basophils 0.2 % (0.0-1.0); %Eosinophils 0.3 % (0.0-10.0); %Lymphocytes 13.1 % (21.0-51.0); %Monocytes 4.3 % (0.0-10.0); Hemoglobin 10.7 g/dL (12.0-16.0); Mean Corpuscular HGB CONC 30.9 g/dL (32.0-36.0); Mean Corpuscular Hemoglobin 31.3 pg (27.0-31.0); Mean Platelet Volume 8.4 fL (7.4-10.4); Platelet Count 170 thou/uL (130-400); RBC Distribution Width 12.9 % (11.5-14.5); Red Blood Cell (RBC) Count 3.44 mill/uL (4.20-5.40); White Blood Cell (WBC) Count 7.2 thou/uL (4.8-10.8)
[2021-01-23 15:23] LABS: INR-International Normal Ratio 0.9; Prothrombin Time 12.1 sec (12.0-14.7)
[2021-01-23 15:32] LABS: ALT (SGPT) 9 U/L (8-55); AST (SGOT) 19 U/L (5-34); Albumin 3.8 g/dL (3.4-4.8); Alkaline Phosphatase 46 U/L (40-110); Anion Gap 16 mmol/L (10-20); BUN (Urea Nitrogen) 15 mg/dL (9.8-20.1); Bilirubin, Total 0.2 mg/dL (0.2-1.2); Calc. Creatinine Clearance 0 mL/min (70-130); Carbon Dioxide 25 mmol/L (23-31); Chloride 102 mmol/L (98-107); Globulin 2.9 g/dL (2.4-3.5); Glucose 119 mg/dL (83-110); Potassium 4.4 mmol/L (3.5-5.1); Protein, Total 6.7 g/dL (5.8-8.1); Sodium 139 mmol/L (136-145)
== END 2021-01-23 16:40 | disposition home or self-care (01) ==
LOC: BURERS 14:46
DX: S52.501A Unspecified fracture of the lower end of right radius, initial encounter for closed fracture (principal); S52.601A Unspecified fracture of lower end of right ulna, initial encounter for closed fracture; S81.011A Laceration without foreign body, right knee, initial encounter; I71.2 Thoracic aortic aneurysm, without rupture; F17.210 Nicotine dependence, cigarettes, uncomplicated; E03.9 Hypothyroidism, unspecified; M06.9 Rheumatoid arthritis, unspecified; J43.9 Emphysema, unspecified; Z79.01 Long term (current) use of anticoagulants; Z79.899 Other long term (current) drug therapy; Z79.891 Long term (current) use of opiate analgesic; W07.XXXA Fall from chair, initial encounter
CPT/HCPCS: 29125; 36415; 80053; 85025; 85610; 93005

== ENCOUNTER 2021-02-13 20:34 | Emergency (ER) | payer MEDICARE, MEDICAID ==
[~2021-02-13 20:34] MED LIST: Iopamidol 370 76% 100 ML VIAL ONE
[2021-02-13] MEDS ORDERED: Acetaminophen 500 MG TAB ONE (21:24)
[2021-02-13 21:50] LABS: #Lymphocytes 0.9 thou/uL (1.20-3.40); #Monocytes 0.6 thou/uL (0.11-0.59); #Neutrophils 8.6 thou/uL (1.40-6.50); %Basophils 0.2 % (0.0-1.0); %Eosinophils 0.3 % (0.0-10.0); %Lymphocytes 8.6 % (21.0-51.0); %Monocytes 6.1 % (0.0-10.0); %Neutrophils 84.8 % (42.0-75.0); Hemoglobin 10.4 g/dL (12.0-16.0); Mean Corpuscular Hemoglobin 32.7 pg (27.0-31.0); Mean Platelet Volume 8.9 fL (7.4-10.4); Platelet Count 142 thou/uL (130-400); RBC Distribution Width 13.4 % (11.5-14.5); Red Blood Cell (RBC) Count 3.16 mill/uL (4.20-5.40); White Blood Cell (WBC) Count 10.1 thou/uL (4.8-10.8)
[2021-02-13 22:04] LABS: ALT (SGPT) 9 U/L (8-55); AST (SGOT) 20 U/L (5-34); Albumin 3.7 g/dL (3.4-4.8); Alkaline Phosphatase 84 U/L (40-110); Anion Gap 16 mmol/L (10-20); BUN (Urea Nitrogen) 14 mg/dL (9.8-20.1); Bilirubin, Total 0.3 mg/dL (0.2-1.2); CK (CPK) 84 U/L (29-168); Calc. Creatinine Clearance 0 mL/min (70-130); Calcium 8.5 mg/dL (7.8-10.44); Carbon Dioxide 27 mmol/L (23-31); Chloride 101 mmol/L (98-107); Globulin 2.9 g/dL (2.4-3.5); Glucose 87 mg/dL (83-110); Potassium 3.7 mmol/L (3.5-5.1); Protein, Total 6.6 g/dL (5.8-8.1); Sodium 140 mmol/L (136-145)
[2021-02-13] MEDS ORDERED: Cefepime 2 GM VIAL ONE (23:03)
[2021-02-13] MEDS ORDERED: Lidocaine 1% PF 5 ML VIAL ONE (23:50)
[2021-02-14 00:35] LABS: Bilirubin Negative (Negative); Blood, Urine Negative (Negative); Clarity Slightly Cloudy (Clear); Glucose, Urine (Dipstick) Negative (Negative); Ketone, Urine Negative (Negative); Leukocyte Moderate (Negative); Nitrite Negative (Negative); Protein, Urine (Dipstick) Negative (Neg-Trace); Specific Gravity, Urine 1.015 (1.005-1.030); Urobilinogen 0.2 mg/dL (Less than 2); pH, Urine 7.5 (5.0-9.0)
[2021-02-14 00:38] LABS: Bacteria/HPF 2+ HPF (None Seen); RBC/HPF 0-3 HPF (0-3)
[2021-02-14 00:39] LABS: SARS-CoV-2 NAA Rapid Test Not Detected (NotDetected)
== END 2021-02-14 00:50 | disposition short-term general hospital (02) ==
LOC: BURERS 20:34
DX: S82.001A Unspecified fracture of right patella, initial encounter for closed fracture (principal); S63.125A Dislocation of interphalangeal joint of left thumb, initial encounter; R65.10 Systemic inflammatory response syndrome (SIRS) of non-infectious origin without acute organ dysfunction; E03.9 Hypothyroidism, unspecified; J43.9 Emphysema, unspecified; Z87.891 Personal history of nicotine dependence; Z79.899 Other long term (current) drug therapy; X58.XXXA Exposure to other specified factors, initial encounter
CPT/HCPCS: 0241U; 26770; 36415; 70450; 71260; 72125; 74177; 80053; 81003; 81015; 82550; 83605; 84484; 85025; 87040; 87086; 93005; 96374; J0692; Q9967

== ENCOUNTER 2021-02-22 10:26 | Emergency (ER) | payer MEDICARE, MEDICAID ==
[2021-02-22 11:14] LABS: #Lymphocytes 1.1 thou/uL (1.20-3.40); #Monocytes 0.4 thou/uL (0.11-0.59); #Neutrophils 3.1 thou/uL (1.40-6.50); %Basophils 0.6 % (0.0-1.0); %Eosinophils 0.5 % (0.0-10.0); %Lymphocytes 24.5 % (21.0-51.0); %Monocytes 7.6 % (0.0-10.0); %Neutrophils 66.8 % (42.0-75.0); Hemoglobin 10.3 g/dL (12.0-16.0); Mean Corpuscular Hemoglobin 31.7 pg (27.0-31.0); Mean Platelet Volume 7.3 fL (7.4-10.4); Platelet Count 221 thou/uL (130-400); RBC Distribution Width 12.8 % (11.5-14.5); Red Blood Cell (RBC) Count 3.25 mill/uL (4.20-5.40); White Blood Cell (WBC) Count 4.6 thou/uL (4.8-10.8)
[2021-02-22 11:39] LABS: ALT (SGPT) 10 U/L (8-55); AST (SGOT) 24 U/L (5-34); Albumin 3.5 g/dL (3.4-4.8); Alkaline Phosphatase 80 U/L (40-110); Anion Gap 16 mmol/L (10-20); BUN (Urea Nitrogen) 14 mg/dL (9.8-20.1); Bilirubin, Total 0.3 mg/dL (0.2-1.2); Calc. Creatinine Clearance 0 mL/min (70-130); Calcium 8.7 mg/dL (7.8-10.44); Carbon Dioxide 28 mmol/L (23-31); Chloride 98 mmol/L (98-107); Globulin 2.9 g/dL (2.4-3.5); Glucose 94 mg/dL (83-110); Protein, Total 6.4 g/dL (5.8-8.1); Sodium 138 mmol/L (136-145)
[2021-02-22 12:01] LABS: CKMB 0.8 ng/mL (0-6.6)
[2021-02-22 12:06] LABS: Bilirubin Negative (Negative); Blood, Urine Negative (Negative); Clarity Clear (Clear); Glucose, Urine (Dipstick) Negative (Negative); Ketone, Urine Negative (Negative); Leukocyte Negative (Negative); Nitrite Negative (Negative); Protein, Urine (Dipstick) Negative (Neg-Trace); Specific Gravity, Urine 1.025 (1.005-1.030); Urobilinogen 0.2 mg/dL (Less than 2); pH, Urine 6.5 (5.0-9.0)
== END 2021-02-22 12:30 | disposition short-term general hospital (02) ==
LOC: BURERS 10:26
DX: A41.9 Sepsis, unspecified organism (principal); R77.8 Other specified abnormalities of plasma proteins; D84.9 Immunodeficiency, unspecified; E03.9 Hypothyroidism, unspecified; M06.9 Rheumatoid arthritis, unspecified; J43.9 Emphysema, unspecified; Z87.891 Personal history of nicotine dependence; Z79.899 Other long term (current) drug therapy
CPT/HCPCS: 36415; 51701; 71046; 80053; 81003; 82553; 84484; 85025; 87040; 93005; 94760; 96365; 96366; 96368; J1956; J3370